=== PATIENT | female | born 1955 | race Caucasian/White ===

== ENCOUNTER 2019-05-14 16:47 | Inpatient (IN) ==
--- NOTE | 2019-05-14 22:03 | Internal Med History&Physical ---
Date of Encounter: 05/15/19 Time of Encounter: 21:53 Internal Medicine - H&P: HPI Chief complaint: dysphagia and swellling Admitted From: Home Plans for Post Hospital Care: Home History of present illness: Ms. Duran is a 63 year old female with past medical history of stage IV colon cancer metastatic to the liver and lungs come to the ED for dysphasia and facial swelling. [id number] encounter at 9 PM Patient reported colon cancer was diagnosed in May with lymphadenopathy in addition to liver metastatic metas tasis and underwent ablation 3 with colon resection 11/2017. Patient started chemotherapy after repeat CT imaging showed a left side abdominal lymphadennode enlargement 10 days ago and underwent further imaging showed long nodules bilaterally lower lobes. Patient was recently hospitalized for new onset seizure secondary to concern for brain metastasis discharged 05/07/2019. Patient was started on Keppra and thereafter has noticed generalized swelling progressive without alleviation or exacerbation. Patient comes to the ED again today for worsening shortness of breath. Patient in the ED had a CT soft tissue neck with contrast showing moderate subcutaneous edema upper chest and lower nec k with concern of moderately sized mass left posterior tongue however was read by multiple radiologist and might be artifact from the patient swelling swallowing. Patient reported the swelling and dysphagia has been started since the Keppra was initiated and has been progressively getting worse intermittently no alleviating or exacerbating factor no association of fever, chills, nausea, vomiting, chest pain, or abdominal pain. CODE STATUS full code reviewed. Patient denied smoking, drinking or drugs. Positive family history of colon cancer x 1 and other types of cancer uncles and aunts. No recent surgical intervention done. The patient past medical, surgical, family and social history. Past Med Surg Social Fam HX - Past Medical History Medical history: asthma, cancer, diabetes, GERD, hyperlipidemia, hypertension, kidney stones Additional medical history: COLON CANCER Psychiatric history: anxiety - Past Surgical History Surgical History: , colectomy Additional surgical history: tubal ligation, open kidney stone removal, lymph node removal, tonsillectomy - Social History Smoking Status: Never smoker Smokeless Tobacco Status: No Alcohol use: occasionally Drug use: none - Family History Mother Adopted: No Family Member Ethnicity: Non- Living Status: Hx Family Cardiac Disorders: Yes Hx Family Respiratory Disorders: Yes (COPD) Hx Family Cancer: Yes (LIVER, COLON) Hx Family GI Disorders: (COLON CANCER) Hx Family Endocrine Disorder: No Hx Family Neuromuscular Disorders: No Hx Family Neurologic Disorders: No Hx Family Autoimmune Disorders: No Father Living Status: Hx Family Cardiac Disorders: Yes ([place] in 40s) Internal Medicine - H&P: Meds Acetaminophen [Tylenol] 325 mg PO Q6HR PRN 02/16/18 [History] Atorvastatin Calcium [Lipitor] 20 mg PO HS 02/16/18 [History] SitaGLIPtin [Januvia] 100 mg PO DAILY 02/16/18 [History] Verapamil HCl [Verelan Pm] 300 mg PO HS 02/16/18 [History] hydrOXYzine HCl [Hydroxyzine HCl] 25 mg PO HS PRN 02/16/18 [History] Prochlorperazine Maleate [Compazine] 10 mg PO Q6HR PRN #90 tablet 03/17/18 [Rx] Aspirin [Adult Aspirin] 81 mg PO DAILY 11/21/18 [History] Docusate Sodium [Dulcolax Stool Softener] 100 mg PO BID 11/21/18 [History] DiphenhydraMINE [Benadryl] 25 mg PO Q8HR PRN 03/12/19 [History] Metformin HCl 1,000 mg PO BID 05/05/19 [History] Ondansetron HCl 8 mg PO Q8H PRN 05/05/19 [History] Potassium Chloride [Klor-Con 10] 10 meq PO BID 05/05/19 [History] levETIRAcetam [Keppra] 250 mg PO Q12HR 05/14/19 [History] Allergy/AdvReac Type Severity Reaction Status Date / Time naproxen [From Aleve] Allergy Severe Swelling Verified 05/11/19 20:45 of Lip/Tongue/Throat quinapril Allergy Swelling Verified 05/11/19 20:45 of Lip/Tongue/Throat doxycycline AdvReac SWELLING Verified 05/11/19 20:45 ibuprofen AdvReac SWELLING Verified 05/11/19 20:45 iodine AdvReac SWELLING Verified 05/11/19 20:45 sulfamethoxazole AdvReac Hives Verified 05/11/19 20:45 [From Bactrim] trimethoprim [From Bactrim] AdvReac Hives Verified 05/11/19 20:45 All Systems PM: A 10-system review of systems was performed and is negative for pertinent findings except as documented above in the HPI. Review of systems: General: No unintentional weightloss, No fever Head: No headahce, No injury. Ears: No discharge, No earache Eyes: No drainage, No eye pain Mouth and Throat: No new ulcers, No pain Nose and Sinus: No new congestion, No pain, Respiratory: No cough, No sputum production, + dyspnea Cardiovascular: No chest pain, No palpitations. Gastrointestinal: No nausea, No vomiting. No abdominal pain. Genital Tract: No discharge, No pain Urinary Tract: No dysuria, No discharge. MSK: No new/worsening joint pain, No new/worsening muscle ache. Endocrine: No cold intolerance, No polyuria Psychological: No suicidal, No homocidal ideation. - Constitutional Vitals: Temp Pulse Resp BP Pulse Ox 98.4 F 102 20 140/86 89 05/14/19 20:25 05/14/19 20:25 05/14/19 20:25 05/14/19 20:25 05/14/19 20:25 Exam: General Appearance: Appearing as age, well-nourished in mild acute distress. Head: Atraumatic normocephalic. right face swelling> left, right arm swelling with bruising> left. Skin: Normal texture, normal turgor, warm, dry. right chest subQ port that is nontender with no lesion purulence. Eyes: Conjunctivae not pale with no erythema, drainage, or ulcers. Anicteric. Neck: difficult to assess Lymphadenopathy in the anterior/posterior cervical chain. No thyromegaly. Trachea midline. soft tissue sweling increase neck circumference, buffalo neck. Heart: RRR, no murmurs. Capillary refill 3 seconds Lungs: No accessory muscle usage, lungs clear to auscultation bilaterally, no wheezes or crackles. Extremities: Non pitting edema noted UE bl, No clubbing, No cyanosis. Abdomen: severe morbid obese. normoactive bowel sounds. non-tender to palpation, no hepatomegally. No guarding. Neuro: AOx3 with no new sensory loss or focal deficits. MSK: Strength 5/5 Upper extremity equal bilaterally. Strength 5/5 Lower extremity equal bilaterally Internal Med - H&P Results - Labs CBC & Chem 7: 05/15/19 03:11 05/15/19 03:11 - Summary of Assessment and Plan Summary of Assessment and Plan: 1.Right facial swelling>left: Etiology unclear. CT showed suspicion of a left posterior tongue mass Patient history of metastatic cancer disease and presents with right face/UE swelling more than left there is a suspicion of SVC syndrome-heme oncology consultation Patient also has noted swelling occurring after Keppra thus we will consult neurology for change of medication to check response. Medical standpoint we will workup for endocrine abnormalities(TSH/T4/Cortisol). Continue to monitor airway-patient understands if airways compromise will need to be intubated. Currently denies any dyspnea and satting 99s in room air, no strider on exam. C4 complement ordered due to asymmetry of the edema. Low suspicion of infection as the patient remains afebrile no leukocytosis and no pain on the right chest port. Blood cultures, procalcitonin orderred. LILA to check for acquired autoimmune diseases. 2.elevated ALP: GGT to check for liver or bone source. 3.Right upper extremity swelling: Ultrasound RUE to rule out DVT. Left upper extremities ultrasound DVT showed no DVT. lymphadenopathy was noted. 4.Dysphagia: Speech consultation Chronic medical conditions: Colon cancer: Heme oncology consultation. Type 2 diabetes: A1c, and sinusitis. History of seizures: On Keppra. Neurology consultation for change of medication due to concern of medication side effect. DVT: heparin Dispo: <2 day stay. - Time Spent With Patient Total time spent is greater than 40 minutes 50% in coordination of care (as documented) at patient's floor/unit and/or counseling patient: Greater than 35 minutes
[2019-05-14] MEDS ORDERED: Naloxone 0.4 MG/ML INJ IVP PRN (22:24)
[2019-05-14] MEDS ORDERED: D5% in Water 1,000 ML IVC PRN (22:24)
[2019-05-14] MEDS ORDERED: Dextrose Gel 15 GM/37.5 ML TUBE PO PRN ×2 (22:24)
[2019-05-14] MEDS ORDERED: *HR* Dextrose 50 % in Water (Syg) 50 ML SYRINGE IVP PRN (22:24)
[2019-05-14 23:10] LABS: Estimated Average Glucose 169 mg/dl
[2019-05-14] MEDS ORDERED: hydrOXYzine pamoate 25 MG CAPSULE PO PRN (23:40)
[2019-05-14] MEDS ORDERED: VERAPAMIL HCL 300 MG PO SCH (23:45)
[2019-05-14] MEDS: Acetaminophen 325 MG TABLET PO PRN (23:56)
[2019-05-15] MEDS: Verapamil ER (24 HR) 180 MG TABLET.ER PO SCH ×2 (00:16→21:31)
[2019-05-15] MEDS: Verapamil ER (24 HR) 120 MG TABLET.ER PO SCH ×2 (00:16→21:31)
[2019-05-15] MEDS: Insulin LISPRO 300 UNITS/3 ML VIAL SQ SCH ×5 (00:17→21:32)
[2019-05-15 04:45] LABS: Basophils % 0.1 %; Hematocrit 36.2 % (35.3-44.9); Hemoglobin 11.6 g/dL (11.5-15.4); Immature Granulocytes % 1.1 % (0-4); Immature Reticulocyte % 24.1 % (11.0-38.0); Lymphocytes # 1.4 K/mcL (0.6-4.6); Lymphocytes % 9.8 %; Mean Corpuscular Hemoglobin 30.3 pg (28.0-33.3); Mean Corpuscular Volume 94.5 fL (83.0-100.0); Mean Platelet Volume 10.2 fL (9.4-12.4); Monocytes # 0.8 K/mcL (0.0-1.3); Monocytes % 5.9 %; Neutrophils # 11.6 K/mcL (1.6-8.9); Platelet Count 206 K/mcL (140-400); Red Blood Count 3.83 M/mcL (3.82-4.97); Red Cell Distribution Width 19.9 % (11.5-14.5); Retculocyte # 0.12 M/mcL (0.05-0.10); Reticulocyte % 3.1 % (1.6-2.8); Segmented Neutrophils % 83.1 %; White Blood Count 13.9 K/mcL (4.3-11.1)
[2019-05-15 04:57] LABS: Prothrombin Time 11.2 Seconds (9.4-12.1)
[2019-05-15 05:04] LABS: % Iron Saturation 8 % (15-50); Alanine Aminotransferase 14 Units/L (7-52); Albumin/Globulin Ratio 1.1 (1.1-2.2); Alkaline Phosphatase 135 Units/L (34-104); Aspartate Amino Transferase 14 Units/L (13-39); BUN/Creatinine Ratio 21 (6-26); Bilirubin,Total 0.9 mg/dL (0.3-1.0); Blood Urea Nitrogen 20 mg/dL (8-23); Calcium 9.8 mg/dL (8.6-10.3); Carbon Dioxide 25 mEq/L (23-29); Chloride 101 mEq/L (98-107); Chol/HDL Ratio 2.2 (0-4.9); Cholesterol 166 mg/dL (< 200); Globulin 3.6 g/dL (2.4-3.5); Glucose 267 mg/dL (70-105); HDL Cholesterol 76 mg/dL (40-59); Iron 35 mcg/dL (50-170); LDL Cholesterol,Calculated 77 mg/dL (0-99); Lactate Dehydrogenase 167 Units/L (140-271); Magnesium 1.7 mg/dL (1.6-2.6); Osmolality,Calculated 292 (280-300); Phosphorous 2.6 mg/dL (2.7-4.5); Potassium 4.3 mEq/L (3.5-5.1); Sodium 135 mEq/L (136-145); Total Protein 7.6 g/dL (6.4-8.9); Transferrin 323 mg/dL (203-362); Triglycerides 66 mg/dL (< 150); eGFR For African Americans > 60 (> 60); eGFR For Non-African Americans 59 (> 60)
[2019-05-15 05:16] LABS: Thyroid Stimulating Hormone 0.916 mcIU/mL (0.340-5.600)
[2019-05-15 05:18] LABS: Triiodothyronine (T3) Free 3.48 pg/mL (2.50-3.90)
[2019-05-15 05:23] LABS: Ferritin 24 ng/mL (10-120)
[2019-05-15 05:40] LABS: Folate > 22.3 ng/mL (3.0-16.0); Procalcitonin 0.03 ng/mL (0.00-0.15); Vitamin B12 208 pg/mL (250-1100)
[2019-05-15] MEDS ORDERED: levETIRAcetam 250 MG TABLET PO SCH (06:00)
[2019-05-15] MEDS ORDERED: *HR* Heparin 5,000 UNIT/ML VIAL SQ SCH (06:00)
[2019-05-15] MEDS: Acetaminophen 325 MG TABLET PO PRN (06:23)
[2019-05-15 07:19] LABS: Gamma Glutamyl Transpeptidase 124 Units/L (1-24)
--- NOTE | 2019-05-15 07:23 | Internal Med Progress Note ---
Hospitalist Progress Note - Encounter Date of Encounter: 05/15/19 Time of Encounter: 07:22 - Subjective Interval History: Patient states she is still swollen, but it seems slightly better. Still swollen arms/hands, but face and throat seems less swollen. No difficulty swallowing, no SOB, no salivation, no facial pain. No abd pain, N/V, leg swelling. - Exam Vitals: Temp Pulse Resp BP Pulse Ox 97.5 F L 88 16 110/74 91 05/15/19 03:54 05/15/19 03:54 05/15/19 03:54 05/15/19 03:54 05/15/19 03:54 Exam: General: NAD, good eye contact, chronically ill appearing, obese, and slightly cushingoid with large round face w some bruising under eyes HEENT: large neck/habitus Thoracic: Normal breath sounds b/l, no wheezing or crackles, no stridor. R sq port Cardio: Normal S1 and S2, regular rate and rhythm Abdomen: Soft, nontender, nondistended, obese Extremities: Warm, well perfused. DP pulses 2+ b/l. No edema. Neuro: Awake, fully oriented. Speech fluent - Summary of Assessment and Plan Summary of Assessment and Plan: Nisreen Duran is a 63 F w hx CoCa metastatic to liver and lung, morbid obesity, DM2, seizures, who p/w swelling of her face, neck, upper chest, and arms/hands, concerning for angioedema v SVC syndrome. Face, neck, and b/l arm swelling: facial swelling initially asymmetric. Etiology unclear. CT showed suspicion of a left posterior tongue mass. Occurred immediately after starting Keppra. Does have metastatic cancer. Thyroid, cortisol, C4 levels unremarkable. No fever and procal negative. - no concern for airway compromise at this time - ENT consult for scope to eval questionable tongue base lesion seen on CT - Neuro consult for change keppra to alternative - Onc consult given recent chemo and metastatic disease, consideration of steroids? - Venous duplex b/l RUE (OSH LUE no DVT) - MANAGER UNDERWRITING eval Chronic medical conditions: Colon cancer: noted, as above, with liver and lung mets Type 2 diabetes: w hyperglycemia, a1c 7.5 mildly uncontrolled, SSI while inpatient History of seizures: as above Morbid obesity (poa): BMI 50 DVT: heparin Tele: no FEN: ADA, no MIVF Lines: PIV, mediport Consults: Onc, Neuro, ENT Code: Full Dispo: anticipate d/c tomorrow pending results of studies/consults above Internal Medicine: Result - Labs CBC & Chem 7: 05/15/19 03:11 05/15/19 03:11 Labs: Short CBC 05/15/19 Range/Units 03:11 WBC 13.9 H (4.3-11.1) K/mcL Hgb 11.6 (11.5-15.4) g/dL Hct 36.2 (35.3-44.9) % Plt Count 206 (140-400) K/mcL Neutrophils # 11.6 H (1.6-8.9) K/mcL BMP 05/15/19 03:11 Sodium 135 L Potassium 4.3 Chloride 101 Carbon Dioxide 25 BUN 20 Creatinine 0.96 Glucose 267 H Calcium 9.8 Cardiac Enzymes 05/14/19 05/15/19 Range/Units 22:49 03:11 Troponin I < 0.03 < 0.03 (< 0.04) ng/mL Liver Function 05/15/19 Range/Units 03:11 Total Bilirubin 0.9 (0.3-1.0) mg/dL GGT 124 H (1-24) Units/L AST 14 (13-39) Units/L ALT 14 (7-52) Units/L Alkaline Phosphatase 135 H (34-104) Units/L Albumin 4.0 (3.5-5.7) g/dL - ABG Interpretation ABG results: PT/INR, D-dimer PT 11.2 Seconds (9.4-12.1) 05/15/19 03:11 Consult Discharge Plan - Plan Referrals: Prashant Pantoja DO [Primary Care Provider] - 05/22/19 1:00 pm
--- NOTE | 2019-05-15 09:11 | Neurology - Consult Note ---
Date of Encounter: 05/15/19 Time of Encounter: 07:10 Assessment and Plan (1) Facial swelling Current Visit: Yes Status: Acute This patient who recently was admitted to the hospital with seizures started on Keppra did not have any further seizures since on medication but having this unusual side effects with this predominantly face and neck swelling as well as swelling in her arms Patient and her are quite convinced that the symptoms started just after starting on the Keppra, she denies any rash associated with it neither any other symptoms She did not have any further seizures since she is on the medication Her workup 2 weeks ago was negative including MRI of the brain which was negative for any metastatic disease the that any other acute abnormality EEG was also negative She is also started on chemotherapy recently and supposed to have an other bouts of chemotherapy today but is on hold considering this new symptoms that she is been experiencing As mentioned this is a very unusual side effects if indeed it is related to the Keppra but as according to the patient's symptoms started just after starting the medication I suggest that we should discontinue it And can start her on a different anticonvulsive medication like Topamax , though there are a lot of other options as well but most of them are metabolized in the liver and with her recent concern of metastatic disease in the liver I would recommend using Topamax which is renally excreted, but should be able to tolerated well We will start her on 25 mg daily and gradually increasing it to 100 mg twice a day In the meantime he can slowly taper off Keppra She will be following up with oncology as well as with other specialties to look into other causes of facial swelling As we do need to exclude any structural abnormalities and headache neck as well (2) History of seizure Current Visit: Yes Status: Acute (3) Colon cancer metastasized to multiple sites Current Visit: No Status: Acute (4) Neck swelling Current Visit: No Status: Acute History of Present Illness HPI: Ms. Duran is a 63 year old female with past medical history of stage IV colon cancer metastatic to the liver and lungs come to the ED for facial swelling. pt has history of colon cancer diagnosed in May with lymphadenopathy in addition to liver metastatic metastasis and underwent ablation 3 with colon resection 11/2017. Patient started chemotherapy after repeat CT imaging showed a left side abdominal lymphadennode enlargement 10 days ago and underwent further imaging showed long nodules bilaterally lower lobes. Patient was recently hospitalized for new onset seizure secondary to concern for brain metastasis discharged 05/07/2019. Patient was started on Keppra and thereafter has noticed generalized swelling progressive without alleviation or exacerbation. Patient comes to the ED again today for worsening shortness of breath. Patient in the ED had a CT soft tissue neck with contrast showing moderate subcutaneous edema upper chest and lower neck with concern of moderately sized mass left posterior tongue however was read by multiple radiologist and might be artifact from the patient swelling swallowing. Patient reported the swelling and dysphagia has been started since the Keppra was initiated and has been progressively getting worse intermittently no alleviating or exacerbating factor no association of fever, chills, nausea, vomiting, chest pain, or abdominal pain. CODE STATUS full code reviewed. Patient denied sm oking, drinking or drugs. Positive family history of colon cancer x 1 and other types of cancer uncles and aunts. Past Med Surg Social Fam HX - Past Medical History Medical history: asthma, cancer, diabetes, GERD, hyperlipidemia, hypertension, kidney stones Additional medical history: COLON CANCER Psychiatric history: anxiety - Past Surgical History Surgical History: , colectomy Additional surgical history: tubal ligation, open kidney stone removal, lymph node removal, tonsillectomy - Social History Smoking Status: Never smoker Smokeless Tobacco Status: No Alcohol use: occasionally Drug use: none - Family History Mother Adopted: No Family Member Ethnicity: Non- Living Status: Hx Family Cardiac Disorders: Yes Hx Family Respiratory Disorders: Yes (COPD) Hx Family Cancer: Yes (LIVER, COLON) Hx Family GI Disorders: (COLON CANCER) Hx Family Endocrine Disorder: No Hx Family Neuromuscular Disorders: No Hx Family Neurologic Disorders: No Hx Family Autoimmune Disorders: No Hx Family Medical Disorders: No (No family history of neurological condition) Father Living Status: Hx Family Cardiac Disorders: Yes ([place] in 40s) Medications and Allergies Acetaminophen [Tylenol] 325 mg PO Q6HR PRN 02/16/18 [History] Atorvastatin Calcium [Lipitor] 20 mg PO HS 02/16/18 [History] SitaGLIPtin [Januvia] 100 mg PO DAILY 02/16/18 [History] Verapamil HCl [Verelan Pm] 300 mg PO HS 02/16/18 [History] hydrOXYzine HCl [Hydroxyzine HCl] 25 mg PO HS PRN 02/16/18 [History] Prochlorperazine Maleate [Compazine] 10 mg PO Q6HR PRN #90 tablet 07/27/18 [Rx] Aspirin [Adult Aspirin] 81 mg PO DAILY 11/21/18 [History] Docusate Sodium [Dulcolax Stool Softener] 100 mg PO BID PRN 11/21/18 [History] DiphenhydraMINE [Benadryl] 25 mg PO Q8HR PRN 03/12/19 [History] Metformin HCl 1,000 mg PO BID 05/05/19 [History] Ondansetron HCl 8 mg PO Q8H PRN 05/05/19 [History] Potassium Chloride [Klor-Con 10] 10 meq PO BID 05/05/19 [History] levETIRAcetam [Keppra] 250 mg PO Q12HR 05/14/19 [History] Allergy/AdvReac Type Severity Reaction Status Date / Time naproxen [From Aleve] Allergy Severe Swelling Verified 05/11/19 20:45 of Lip/Tongue/Throat levetiracetam [From Keppra] Allergy Difficulty Verified 05/16/19 02:02 Swallowing quinapril Allergy Swelling Verified 05/11/19 20:45 of Lip/Tongue/Throat doxycycline AdvReac SWELLING Verified 05/11/19 20:45 ibuprofen AdvReac SWELLING Verified 05/11/19 20:45 iodine AdvReac SWELLING Verified 05/11/19 20:45 sulfamethoxazole AdvReac Hives Verified 05/11/19 20:45 [From Bactrim] trimethoprim [From Bactrim] AdvReac Hives Verified 05/11/19 20:45 All Systems: The remainder of the systems were reviewed and are negative Physical Examination - Vital Signs Vital Signs: Initial Vital Signs Temp Pulse Resp BP Pulse Ox 98.4 F 102 20 140/86 89 05/14/19 20:25 05/14/19 20:25 05/14/19 20:25 05/14/19 20:25 05/14/19 20:25 - Exam Exam: GENERAL: Comfortable in no acute distress, facial swelling noted without any erythema or rash HEENT: Normal LUNGS: CTA HEART: RRR, S1 S2 Audible, no murmur EXTREMITIES: No Pedal edema. DETAILED NEUROLOGICAL EXAMINATION: MENTAL STATUS: Oriented to person, place, date and situation. Memory: knows the President, Aware of recent events Recent Memory Intact, Attention span is normal Cranial Nerve Examination: CN - II: Visual Acuity, Field of Vision Normal, Fundus examination: No disk edema, Pupils- size shape reaction to light and accommodation: All normal. CN III, IV, : External ocular movements were intact, Pupils were reactive, Nodrooping of the eyelids CN V: Sensation over the face to light touch and pinprick all normal. Corneal reflexes not tested, jaw jerk normal. CN VII: No facial asymmetry, no flattening of nasolabial folds, no difficulty in closing the eyes, no loss of forehead wrinkles, no difficulty in eye-closure, frowning raising eyebrows. CNVIII: No significant hearing loss CN IX, X: Uvula centralized not deviated, Gag reflex: Not tested CN X1: Sternocleidomastoid, trapezius, normal or evidence of any weakness. CN X11: No Dysarthria, no wasting or fibrilation f tongue muscles, no deviation, tongue muscle strength normal. Motor examination: No hypertrophy, tone was normal, power grade 0-5 Upper limbs Proximal- No difficulty in lifting the arms above the head. Distal- No weakness in distal muscles On formal testing 5/5 all over Lower limbs On formal testing 5/5 all over Coordination: [id number] normal. Target pursuit normal finger tapping normal, Rapid alternating moment of wrist normal Sensory system: Superficial sensations- Touch normal. Pain- Pinprick, Temperature all normal, Deep sensation normal, Joint position sense normal. Cortical sensation, Tactile discrimination, localization and extinction all normal. Deep tendon reflexes. Symmetrical bilateral, No evidence of Babinski. No sign of meningeal irritation Gait Examination: Deferred - Constitutional General appearance: comfortable Results - Laboratory Findings CBC and BMP: 05/16/19 03:57 05/16/19 03:57 Abnormal lab findings: Abnormal lab results WBC 13.9 K/mcL (4.3-11.1) H 05/15/19 03:11 RDW 19.9 % (11.5-14.5) H 05/15/19 03:11 Reticulocyte # 0.12 M/mcL (0.05-0.10) H 05/15/19 03:11 Neutrophils # 11.6 K/mcL (1.6-8.9) H 05/15/19 03:11 Percent Retic 3.1 % (1.6-2.8) H 05/15/19 03:11 Sodium 135 mEq/L (136-145) L 05/15/19 03:11 Est GFR (Non-Af Amer) 59 (> 60) L 05/15/19 03:11 Glucose 267 mg/dL (70-105) H 05/15/19 03:11 POC Glucose 294 mg/dL (70-99) H 05/15/19 00:04 Hemoglobin A1c 7.5 % (-5.6) H 05/14/19 22:49 Phosphorus 2.6 mg/dL (2.7-4.5) L 05/15/19 03:11 Iron 35 mcg/dL (50-170) L 05/15/19 03:11 % Saturation 8 % (15-50) L 05/15/19 03:11 GGT 124 Units/L (1-24) H 05/15/19 03:11 Alkaline Phosphatase 135 Units/L (34-104) H 05/15/19 03:11 Globulin 3.6 g/dL (2.4-3.5) H 05/15/19 03:11 HDL Cholesterol 76 mg/dL (40-59) H 05/15/19 03:11 Vitamin B12 208 pg/mL (250-1100) L 05/15/19 03:11 Folate > 22.3 ng/mL (3.0-16.0) H 05/15/19 03:11 Consult Discharge Plan - Plan Referrals: Prashant Pantoja DO [Primary Care Provider] - 05/22/19 1:00 pm
--- NOTE | 2019-05-15 09:56 | Oncology Inp Consult Note ---
<Michelle Mejia - Last Filed: 05/15/19 15:16> Date of Encounter: 05/15/19 Time of Encounter: 09:54 Assessment and Plan (1) Colon cancer metastasized to multiple sites Status: Acute Assessment and plan: Chemotherapy on-hold while hospitalized. Plan to resume treatment, as an outpatient, on 05/22/19 Outpatient imaging from [facility] noted CT showing progression in the lungs. Patient aware of results. New treatment plan included irinotecan and 5FU home infusion (2) Facial swelling Status: Acute Assessment and plan: DVT noted to right subclavian (3) History of seizure Status: Acute Assessment and plan: Neurology consulted and appreciate recommendations. Keppra stopped and patient being transitioned to Topamax - Data of Consult Patient: known to practice within the last 3 years Consult date: 05/15/19 Requesting Physician: Houston Bermeo Primary Care Provider: Prashant Pantoja, DO - Consult Narrative Reason for consult: metastatic colon cancer, concerns for SVC syndrome History of present illness: Ms. Nisreen Duran, a 63yo female with known colon cancer, presented to the emergency department on 05/14/19 for facial edema, BUE edema, and worsening shortness of breath. She notes that she recently starting taking Keppra for a seizure ten days ago. She has not had any additional seizures since beginning Keppra. She notes that her right-side of her face and chest appear more swollen than the left side. She had BUE edema and facial edema. She is currently on 2L O2 per NC and denies dyspnea at this time. She denies chest pain or palpitations. Oncology was consulted on 05/15/19 due to metastatic colon cancer and concerns for SVC syndrome. Oncology history: Medical oncologist: Dr. Walls Diagnosis: moderately differentiated adenocarcinoma of the ascending colon mass, s/p neoadjuvant FOLFOX and right hemicolectomy on 11/14/2018, ablation of liver metastatic lesions planned at [facility] [id number] (clinial M1) Abnormal colonoscopy in May 2017 underwent a follow-up scope January 2018. A colonoscopy showed infiltrative nonobstructive large mass in distal ascending colon biopsies were obtained is consistent with moderately differentiated adenocarcinoma with at least intramucosal invasion. Patient had undergone CT scan that showed liver lesions She had a CT-guided biopsy of the liver lesion which is consistent with metastatic colon carcinoma Patient started C1 FOLFOX, 03/2018. 06/08-patient was seen by surgery at [facility] after 3 cycles, they recommended complete 6 cycles of treatment prior to surgery due to her recent thrombosis associated with MediPort and the need for continued anticoagulation. Patient underwent last dose of FOLFOX 10/04/18. Minimal neuropathy. She underwent repeat CT imaging at [facility] liver lesions were not clearly visualized. 11/21/18--Extended right hemicolectomy and anastamosis performed, 11/14/18. No peritoneal metastases. lymph nodes were positive. Tumor was moderately to poorly differentiated with treatment effect. Positive lymph node that is less than 0.1 cm from radial margin; the main tumor is 2.7 cm away from the radial margin (positive if tumor < 0.1 cm from margin) Nearest distance of tumor to radial margin: < 0.1 cm lymphovascular invasion. Eccentric tumor deposits, discontinuous extramural involvement. She is scheduled for liver ablation procedure. She has a follow-up appointment with surgery on . 01/29/19 s/p ablation of metastatic liver lesions at [facility] Started capecitabine oxaliplatin, CEA progressively increased --04/09. CT chest 05/03/19 showed incr no of small pulm nodules measuring 6mm concerning for mets at [facility], CT abd pending Plan to change treatment to irinotecan/5FU. Patient was planned to begin treatment 05/16/19, but currently hospitalized. Will plan for visit and treatment on 06/22/19. Past Med Surg Social Fam HX - Past Medical History Medical history: asthma, cancer, diabetes, GERD, hyperlipidemia, hypertension, kidney stones Additional medical history: COLON CANCER Psychiatric history: anxiety - Past Surgical History Surgical History: , colectomy Additional surgical history: tubal ligation, open kidney stone removal, lymph node removal, tonsillectomy - Social History Smoking Status: Never smoker Smokeless Tobacco Status: No Alcohol use: occasionally Drug use: none - Family History Mother Adopted: No Family Member Ethnicity: Non- Living Status: Hx Family Cardiac Disorders: Yes Hx Family Respiratory Disorders: Yes (COPD) Hx Family Cancer: Yes (LIVER, COLON) Hx Family GI Disorders: (COLON CANCER) Hx Family Endocrine Disorder: No Hx Family Neuromuscular Disorders: No Hx Family Neurologic Disorders: No Hx Family Autoimmune Disorders: No Father Living Status: Hx Family Cardiac Disorders: Yes ([place] in 40s) Medications and Allergies Acetaminophen [Tylenol] 325 mg PO Q6HR PRN 02/16/18 [History] Atorvastatin Calcium [Lipitor] 20 mg PO HS 02/16/18 [History] SitaGLIPtin [Januvia] 100 mg PO DAILY 02/16/18 [History] Verapamil HCl [Verelan Pm] 300 mg PO HS 02/16/18 [History] hydrOXYzine HCl [Hydroxyzine HCl] 25 mg PO HS PRN 02/16/18 [History] Prochlorperazine Maleate [Compazine] 10 mg PO Q6HR PRN #90 tablet 03/17/18 [Rx] Aspirin [Adult Aspirin] 81 mg PO DAILY 11/21/18 [History] Docusate Sodium [Dulcolax Stool Softener] 100 mg PO BID PRN 11/21/18 [History] DiphenhydraMINE [Benadryl] 25 mg PO Q8HR PRN 03/12/19 [History] Metformin HCl 1,000 mg PO BID 05/05/19 [History] Ondansetron HCl 8 mg PO Q8H PRN 05/05/19 [History] Potassium Chloride [Klor-Con 10] 10 meq PO BID 05/05/19 [History] levETIRAcetam [Keppra] 250 mg PO Q12HR 05/14/19 [History] Allergy/AdvReac Type Severity Reaction Status Date / Time naproxen [From Aleve] Allergy Severe Swelling Verified 05/11/19 20:45 of Lip/Tongue/Throat quinapril Allergy Swelling Verified 05/11/19 20:45 of Lip/Tongue/Throat doxycycline AdvReac SWELLING Verified 05/11/19 20:45 ibuprofen AdvReac SWELLING Verified 05/11/19 20:45 iodine AdvReac SWELLING Verified 05/11/19 20:45 sulfamethoxazole AdvReac Hives Verified 05/11/19 20:45 [From Bactrim] trimethoprim [From Bactrim] AdvReac Hives Verified 05/11/19 20:45 Cardiovascular: Present: edema. Absent: chest pain, palpitations, rapid heart rate Respiratory: Absent: dyspnea, chest congestion Gastrointestinal: Absent: abdominal pain, constipation, diarrhea, nausea, vomiting Musculoskeletal: Present: numbness, tingling. Absent: muscle weakness Integumentary: Present: swelling Neurological: Absent: confusion, loss of vision Oncology - Exam - Head Additional comments: facial edema - Respiratory Respiratory exam: Present: decreased breath sounds. Absent: accessory muscle use, respiratory distress - Cardiovascular Cardiovascular exam: Present: RRR - GI/Abdominal GI/Abdominal exam: Present: normal bowel sounds, soft. Absent: tenderness - Extremities Exam Additional comments: BUE edema - Neurological Exam Neurological exam: Present: alert, oriented X3. Absent: facial droop, speech deficit - Psychiatric Psychiatric exam: Present: anxious - Skin Skin exam: Present: dry, pallor Oncology Inpatient Results Labs: Laboratory Results - last 24 hr 05/14/19 05/14/19 05/15/19 22:49 22:49 00:04 WBC RBC Hgb Hct MCV MCH MCHC RDW Plt Count MPV Reticulocyte # Immature Gran % Seg Neutrophils % Lymphocytes % Monocytes % Eosinophils % Basophils % Neutrophils # Lymphocytes # Monocytes # Eosinophils # Basophils # Percent Retic Immature Retic Fraction Retic Hgb Equivalent PT INR Sodium Potassium Chloride Carbon Dioxide BUN Creatinine Est GFR ( Amer) Est GFR (Non-Af Amer) BUN/Creatinine Ratio Glucose POC Glucose 294 H Est Mean Plasma Glucose 169 Hemoglobin A1c 7.5 H Calculated Osmolality Calcium Phosphorus Magnesium Iron % Saturation Transferrin Ferritin Total Bilirubin GGT AST ALT Alkaline Phosphatase Lactate Dehydrogenase Troponin I < 0.03 Serum Total Protein Albumin Globulin Albumin/Globulin Ratio Triglycerides Cholesterol LDL Cholesterol, Calc VLDL Cholesterol, Calc HDL Cholesterol Cholesterol/HDL Ratio Vitamin B12 Folate Procalcitonin TSH Free T4 Free T3 Random Cortisol Complement C4 05/15/19 05/15/19 05/15/19 03:11 03:11 03:11 WBC 13.9 H RBC 3.83 Hgb 11.6 Hct 36.2 MCV 94.5 MCH 30.3 MCHC 32.0 RDW 19.9 H Plt Count 206 MPV 10.2 Reticulocyte # 0.12 H Immature Gran % 1.1 Seg Neutrophils % 83.1 Lymphocytes % 9.8 Monocytes % 5.9 Eosinophils % 0.0 Basophils % 0.1 Neutrophils # 11.6 H Lymphocytes # 1.4 Monocytes # 0.8 Eosinophils # 0.0 Basophils # 0.0 Percent Retic 3.1 H Immature Retic Fraction 24.1 Retic Hgb Equivalent 35.0 PT 11.2 INR 1.0 Sodium 135 L Potassium 4.3 Chloride 101 Carbon Dioxide 25 BUN 20 Creatinine 0.96 Est GFR ( Amer) > 60 Est GFR (Non-Af Amer) 59 L BUN/Creatinine Ratio 21 Glucose 267 H POC Glucose Est Mean Plasma Glucose Hemoglobin A1c Calculated Osmolality 292 Calcium 9.8 Phosphorus 2.6 L Magnesium 1.7 Iron 35 L % Saturation 8 L Transferrin 323 Ferritin 24 Total Bilirubin 0.9 GGT 124 H AST 14 ALT 14 Alkaline Phosphatase 135 H Lactate Dehydrogenase 167 Troponin I Serum Total Protein 7.6 Albumin 4.0 Globulin 3.6 H Albumin/Globulin Ratio 1.1 Triglycerides 66 Cholesterol 166 LDL Cholesterol, Calc 77 VLDL Cholesterol, Calc 13 HDL Cholesterol 76 H Cholesterol/HDL Ratio 2.2 Vitamin B12 Folate Procalcitonin TSH 0.916 Free T4 1.05 Free T3 3.48 Random Cortisol 4.4 Complement C4 05/15/19 05/15/19 05/15/19 03:11 03:11 03:11 WBC RBC Hgb Hct MCV MCH MCHC RDW Plt Count MPV Reticulocyte # Immature Gran % Seg Neutrophils % Lymphocytes % Monocytes % Eosinophils % Basophils % Neutrophils # Lymphocytes # Monocytes # Eosinophils # Basophils # Percent Retic Immature Retic Fraction Retic Hgb Equivalent PT INR Sodium Potassium Chloride Carbon Dioxide BUN Creatinine Est GFR ( Amer) Est GFR (Non-Af Amer) BUN/Creatinine Ratio Glucose POC Glucose Est Mean Plasma Glucose Hemoglobin A1c Calculated Osmolality Calcium Phosphorus Magnesium Iron % Saturation Transferrin Ferritin Total Bilirubin GGT AST ALT Alkaline Phosphatase Lactate Dehydrogenase Troponin I < 0.03 Serum Total Protein Albumin Globulin Albumin/Globulin Ratio Triglycerides Cholesterol LDL Cholesterol, Calc VLDL Cholesterol, Calc HDL Cholesterol Cholesterol/HDL Ratio Vitamin B12 208 L Folate > 22.3 H Procalcitonin 0.03 TSH Free T4 Free T3 Random Cortisol Complement C4 33 Consult Discharge Plan - Plan Referrals: Prashant Pantoja DO [Primary Care Provider] - 05/22/19 1:00 pm Inpatient Charges Provider: Dr. Maria Eugenia Walls <Jannet Walls - Last Filed: 05/15/19 17:00> Date of Encounter: 05/15/19 - Data of Consult Requesting Physician: [place] Bermeo Primary Care Provider: Prashant Pantoja DO - Consult Narrative History of present illness: Patient with recent ED visit for neck swelling underwent imaging hospitalized for swelling in the neck/throat. ?doppler SC vein thrombosis. SHe had hx port associated thrombus was anticoagulated (currently off xarelto). Restart anticoagulation. Port may stay. Neurology-for Keppra associated possible reaction and ENT evaluation. I examined this patient and my medical decision- making was reviewed with the Advanced Practice Nurse, Michelle Mejia. I agree with the documented findings, disposition and treatment plan as described except to the extent set forth below. Hold chemotherapy due tomorrow due to hospitalization, resume in a wk. Inpatient Charges Provider: Dr. Maria Eugenia Walls Consult - Inpatient: [id number]
[2019-05-15] MEDS: Aspirin Enteric Coated 81 MG Tablet PO SCH (09:58)
[2019-05-15] MEDS: Topiramate 25 MG TABLET PO SCH ×2 (10:26→21:31)
[2019-05-15] MEDS: Ondansetron ODT 4 MG TAB.RAPDIS SL PRN (11:00)
[2019-05-15 12:22] LABS: Bilirubin,Urine Small (Negative); Blood,Urine Negative (Negative); Clarity,Urine Clear (Clear); Color,Urine Dark Yellow (Yellow); Glucose,Urine (UA) Normal (Normal); Ketones,Urine Negative (Negative); Leukocyte Esterase,Urine Negative (Negative); Nitrite,Urine Negative (Negative); PH,Urine 5.5 pH Units (5.0-8.0); Protein,Urine 30 mg/dL (Neg-Trace); Specific Gravity,Urine > 1.030 (1.010-1.025); Urobilinogen,Urine Normal (Normal)
[2019-05-15 12:26] LABS: Bacteria,Urine None Seen per hpf (None-Few); Hyaline Casts,Urine Moderate per lpf (None-Few); Squamous Epithelial Cell,Urine Many per lpf (None-Few); WBC,Urine 0-3 per hpf (0-3)
[2019-05-15] MEDS ORDERED: *HR* Enoxaparin 30 MG/0.3 ML SYRINGE SQ ONE (13:25)
[2019-05-15] MEDS ORDERED: *HR* Enoxaparin 120 MG/0.8 ML SYRINGE SQ ONE (14:15)
--- NOTE | 2019-05-15 17:21 | ENT - Consult Note ---
Date of Encounter: 05/15/19 Time of Encounter: 17:19 Assessment and Plan (1) Benign neoplasm of base of tongue Current Visit: Yes Status: Resolved There is no evidence of any tongue base mass. Her tongue base is soft. There is no lesion on laryngoscopy. CT findings are likely artifact. Her CT scan a week ago did not show any tongue base mass which also favors there being no current pathology. This has been communicated to Dr. Degroot. ENT will sign off please for free to call us with any future concerns or questions (2) Facial swelling Current Visit: Yes Status: Acute Appears to be resolved/resolving. No evidence of airway compromise. Continue treatment per primary team History of Present Illness Consult date: 05/15/19 (possible tongue base mass) History of present illness: This is a 63-year-old female with metastatic colon cancer to lungs and liver. She has an extensive history history of treatment, including surgeries along with chemotherapy. She presented to an outside emergency room with concerns of progressive upper chest and neck swelling on the right side. She complained of dysphagia and increased shortness of breath. There was concern for SVC syndrome. She believes her edema and symptoms started soon after initiating Keppra. CT scan of the neck was done and was read as a potential left tongue base mass (per verbal report from hospitalist). There was suspicion this may have been artifact, however. ENT was consulted for direct inspection of the tongue base. She had a ultrasound of her upper extremity and early reports suggest right subclavian and cephalic thrombosis (there is no official read yet). She was given a dose fo Lovenox. She was transferred from the ICU to the floor today. She is doing well on RA without any increased work of breathing. She states her breathing and swelling have improved since discontinuing the Keppra. She is currently NPO pending my evaluation. She is handling her secretions and feels that she could swallow easily. A previous CT scan was done 3 days without any acute findings. She is being managed by the internal medicine service with neurology and oncology consult. Neurology is working to wean her off Keppra. She had a recent hospital admission due to seizures. She has been afebrile. Her oncologic treatment is based out of the [facility] in [place]. Past Med Surg Social Fam HX - Past Medical History Medical history: asthma, cancer, diabetes, GERD, hyperlipidemia, hypertension, kidney stones Additional medical history: COLON CANCER Psychiatric history: anxiety - Past Surgical History Surgical History: , colectomy Additional surgical history: tubal ligation, open kidney stone removal, lymph node removal, tonsillectomy - Social History Smoking Status: Never smoker Smokeless Tobacco Status: No Alcohol use: occasionally Drug use: none - Family History Mother Adopted: No Family Member Ethnicity: Non- Living Status: Hx Family Cardiac Disorders: Yes Hx Family Respiratory Disorders: Yes (COPD) Hx Family Cancer: Yes (LIVER, COLON) Hx Family GI Disorders: (COLON CANCER) Hx Family Endocrine Disorder: No Hx Family Neuromuscular Disorders: No Hx Family Neurologic Disorders: No Hx Family Autoimmune Disorders: No Father Living Status: Hx Family Cardiac Disorders: Yes ([place] in 40s) Medications and Allergies Acetaminophen [Tylenol] 325 mg PO Q6HR PRN 02/16/18 [History] Atorvastatin Calcium [Lipitor] 20 mg PO HS 02/16/18 [History] SitaGLIPtin [Januvia] 100 mg PO DAILY 02/16/18 [History] Verapamil HCl [Verelan Pm] 300 mg PO HS 02/16/18 [History] hydrOXYzine HCl [Hydroxyzine HCl] 25 mg PO HS PRN 02/16/18 [History] Prochlorperazine Maleate [Compazine] 10 mg PO Q6HR PRN #90 tablet 03/17/18 [Rx] Aspirin [Adult Aspirin] 81 mg PO DAILY 11/21/18 [History] Docusate Sodium [Dulcolax Stool Softener] 100 mg PO BID PRN 11/21/18 [History] DiphenhydraMINE [Benadryl] 25 mg PO Q8HR PRN 03/12/19 [History] Metformin HCl 1,000 mg PO BID 05/05/19 [History] Ondansetron HCl 8 mg PO Q8H PRN 05/05/19 [History] Potassium Chloride [Klor-Con 10] 10 meq PO BID 05/05/19 [History] levETIRAcetam [Keppra] 250 mg PO Q12HR 05/14/19 [History] Allergy/AdvReac Type Severity Reaction Status Date / Time naproxen [From Aleve] Allergy Severe Swelling Verified 05/11/19 20:45 of Lip/Tongue/Throat quinapril Allergy Swelling Verified 05/11/19 20:45 of Lip/Tongue/Throat doxycycline AdvReac SWELLING Verified 05/11/19 20:45 ibuprofen AdvReac SWELLING Verified 05/11/19 20:45 iodine AdvReac SWELLING Verified 05/11/19 20:45 sulfamethoxazole AdvReac Hives Verified 05/11/19 20:45 [From Bactrim] trimethoprim [From Bactrim] AdvReac Hives Verified 05/11/19 20:45 ENT - ROS All systems PM: reviewed and no additional remarkable complaints except as stated (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 No distress. Communication and Voice: Clear pitch and clarity Respiratory Respiratory effort: Equal inspiration and expiration without stridor Auscultation: Equal breath sounds bilaterally Cardiovascular Heart: regular rate and rhythm Peripheral Vascular: Warm extremities with equal pulses Neuro: Patient oriented to person, place, and time; Appropriate mood and affect; Gait is intact with no imbalance; Cranial nerves II-XII are intact except for left eye blindness Head and Face Inspection: Normocephalic and atraumatic without mass or lesion. No definite edema of hte neck or face. Symmetric fullness. Negative dre sign. Palpation: Facial skeleton intact without bony stepoffs Facial Strength: Facial motility symmetric and full bilaterally Eyes: PERRLA. No nystagmus with normal extraocular motion bilaterally ENT Pinna: External ear intact and fully developed External canal: Canal is patent with intact skin Tympanic Membrane: Clear and mobile External nose: No scar or anatomic deformity Internal Nose: Septum intact and midline. No edema, polyp, or rhinorrhea. TMJ: No pain to palpation with full mobility Salivary Glands: No mass or tenderness Lips: No lesion. Oral cavity: No mass or lesion. Oropharynx: No mass or lesion. Tonsillar fossa symmetric. Base of tongue soft without mass or induration. Nasopharynx: unable to visualize Hypopharynx: unable to visualize Larynx: unable to visualize Neck Trachea: Midline trachea. Thyroid: No mass or nodularity. Lymphatics: No discrete lymphadenopathy. Preoperative diagnosis: possible tongue base mass, airway evaluation Postoperative diagnosis: Same Procedure: Flexible fiberoptic laryngoscopy Surgeon: Brooks Neal M.D. Anesthesia: None Complications: None Condition is stable throughout exam Indications and consent: The patient presents with concnern of airway compromise and possible tongue base mass. Indirect laryngoscopy was incomplete due to a strong gag reflex. Thus it was recommended that they undergo a flexible fiberoptic laryngoscopy. All of the risks, benefits, and potential complications were reviewed with the patient preoperatively and verbal informed consent was obtained. Procedure: The patient was seated upright in the clinic. Topical lidocaine and Afrin were applied to the nasal cavity. After adequate anesthesia had occurred, I then proceeded to pass the flexible telescope into the nasal cavity. The nasal cavity was patent without rhinorrhea or polyp. The nasopharynx was also patent without mass or lesion. The base of tongue was visualized and was normal. There were no signs of pooling of secretions in the piriform sinuses. The true vocal folds were mobile bilaterally. There were no signs of glottic or supraglottic mucosal lesion or mass. There was moderate interarytenoid pachydermia and post cricoid edema. The telescope was then slowly withdrawn and the patient tolerated the procedure throughout. Exam Initial Vital Signs Temp Pulse Resp BP Pulse Ox 98.4 F 102 20 140/86 89 05/14/19 20:25 05/14/19 20:25 05/14/19 20:25 05/14/19 20:25 05/14/19 20:25 Results - Labs 05/15/19 03:11 05/15/19 03:11 Abnormal lab results WBC 13.9 K/mcL (4.3-11.1) H 05/15/19 03:11 RDW 19.9 % (11.5-14.5) H 05/15/19 03:11 Reticulocyte # 0.12 M/mcL (0.05-0.10) H 05/15/19 03:11 Neutrophils # 11.6 K/mcL (1.6-8.9) H 05/15/19 03:11 Percent Retic 3.1 % (1.6-2.8) H 05/15/19 03:11 Sodium 135 mEq/L (136-145) L 05/15/19 03:11 Est GFR (Non-Af Amer) 59 (> 60) L 05/15/19 03:11 Glucose 267 mg/dL (70-105) H 05/15/19 03:11 POC Glucose 294 mg/dL (70-99) H 05/15/19 00:04 Hemoglobin A1c 7.5 % (-5.6) H 05/14/19 22:49 Phosphorus 2.6 mg/dL (2.7-4.5) L 05/15/19 03:11 Iron 35 mcg/dL (50-170) L 05/15/19 03:11 % Saturation 8 % (15-50) L 05/15/19 03:11 GGT 124 Units/L (1-24) H 05/15/19 03:11 Alkaline Phosphatase 135 Units/L (34-104) H 05/15/19 03:11 Globulin 3.6 g/dL (2.4-3.5) H 05/15/19 03:11 HDL Cholesterol 76 mg/dL (40-59) H 05/15/19 03:11 Vitamin B12 208 pg/mL (250-1100) L 05/15/19 03:11 Folate > 22.3 ng/mL (3.0-16.0) H 05/15/19 03:11 Ur Specific [place] > 1.030 (1.010-1.025) H 05/15/19 11:10 Urine Protein 30 mg/dL (Neg-Trace) H 05/15/19 11:10 Urine Bilirubin Small (Negative) H 05/15/19 11:10 Urine Microscopic RBC 3-5 per hpf (0-3) H 05/15/19 11:10 Ur Squamous Epith Cells Many per lpf (None-Few) H 05/15/19 11:10 Hyaline Casts Moderate per lpf (None-Few) H 05/15/19 11:10 Diabetes panel 05/14/19 05/15/19 Range/Units 22:49 03:11 Sodium 135 L (136-145) mEq/L Potassium 4.3 (3.5-5.1) mEq/L Chloride 101 (98-107) mEq/L Carbon Dioxide 25 (23-29) mEq/L BUN 20 (8-23) mg/dL Creatinine 0.96 (0.60-1.20) mg/dL Glucose 267 H (70-105) mg/dL Hemoglobin A1c 7.5 H ( - 5.6) % Calcium 9.8 (8.6-10.3) mg/dL AST 14 (13-39) Units/L ALT 14 (7-52) Units/L Alkaline Phosphatase 135 H (34-104) Units/L Albumin 4.0 (3.5-5.7) g/dL Triglycerides 66 (< 150) mg/dL HDL Cholesterol 76 H (40-59) mg/dL Thyroid panel 05/15/19 Range/Units 03:11 TSH 0.916 (0.340-5.600) mcIU/mL Calcium panel 05/15/19 Range/Units 03:11 Calcium 9.8 (8.6-10.3) mg/dL Phosphorus 2.6 L (2.7-4.5) mg/dL Albumin 4.0 (3.5-5.7) g/dL Pituitary panel 05/15/19 Range/Units 03:11 Sodium 135 L (136-145) mEq/L Potassium 4.3 (3.5-5.1) mEq/L Chloride 101 (98-107) mEq/L Carbon Dioxide 25 (23-29) mEq/L BUN 20 (8-23) mg/dL Creatinine 0.96 (0.60-1.20) mg/dL Glucose 267 H (70-105) mg/dL Calcium 9.8 (8.6-10.3) mg/dL TSH 0.916 (0.340-5.600) mcIU/mL Adrenal panel 05/15/19 Range/Units 03:11 Sodium 135 L (136-145) mEq/L Potassium 4.3 (3.5-5.1) mEq/L Chloride 101 (98-107) mEq/L Carbon Dioxide 25 (23-29) mEq/L BUN 20 (8-23) mg/dL Creatinine 0.96 (0.60-1.20) mg/dL Glucose 267 H (70-105) mg/dL Calcium 9.8 (8.6-10.3) mg/dL Total Bilirubin 0.9 (0.3-1.0) mg/dL AST 14 (13-39) Units/L ALT 14 (7-52) Units/L Alkaline Phosphatase 135 H (34-104) Units/L Albumin 4.0 (3.5-5.7) g/dL All other labs normal. - Imaging Additional studies: CT neck 05/14 review: Outside report states: "moderate sized left posterior tongue base mass. This could be more apparent than real". CT neck 05/12 reviewed: IMPRESSION: Mild subcutaneous fat stranding and probably skin scarring overlying the right chest port. Otherwise, unremarkable neck soft tissues. No drainable fluid collection, mass or subcutaneous emphysema. Consult Discharge Plan - Plan Referrals: Prashant Pantoja DO [Primary Care Provider] - 05/22/19 1:00 pm
[2019-05-15] MEDS: *HR* Rivaroxaban 15 MG TABLET PO SCH (22:26)
[2019-05-16] MEDS: Acetaminophen 325 MG TABLET PO PRN (01:33)
[2019-05-16 04:19] LABS: Basophils # 0.1 K/mcL (0.0-0.2); Basophils % 0.3 %; Eosinophils # 0.1 K/mcL (0.0-0.6); Eosinophils % 0.3 %; Hematocrit 33.9 % (35.3-44.9); Lymphocytes % 24.2 %; Mean Corpuscular HGB Conc 32.4 g/dL (31.6-35.5); Mean Corpuscular Hemoglobin 29.7 pg (28.0-33.3); Mean Corpuscular Volume 91.6 fL (83.0-100.0); Monocytes # 1.5 K/mcL (0.0-1.3); Monocytes % 8.8 %; Neutrophils # 10.9 K/mcL (1.6-8.9); Platelet Count 200 K/mcL (140-400); Red Cell Distribution Width 20.1 % (11.5-14.5); Segmented Neutrophils % 65.4 %; White Blood Count 16.6 K/mcL (4.3-11.1)
[2019-05-16 05:09] LABS: Alanine Aminotransferase 12 Units/L (7-52); Albumin 3.6 g/dL (3.5-5.7); Albumin/Globulin Ratio 1.1 (1.1-2.2); Alkaline Phosphatase 133 Units/L (34-104); Aspartate Amino Transferase 19 Units/L (13-39); BUN/Creatinine Ratio 26 (6-26); Bilirubin,Total 0.7 mg/dL (0.3-1.0); Blood Urea Nitrogen 25 mg/dL (8-23); Calcium 9.2 mg/dL (8.6-10.3); Carbon Dioxide 20 mEq/L (23-29); Chloride 104 mEq/L (98-107); Globulin 3.3 g/dL (2.4-3.5); Glucose 171 mg/dL (70-105); Osmolality,Calculated 290 (280-300); Potassium 3.6 mEq/L (3.5-5.1); Sodium 136 mEq/L (136-145); Total Protein 6.9 g/dL (6.4-8.9); eGFR For African Americans > 60 (> 60); eGFR For Non-African Americans 57 (> 60)
[2019-05-16] MEDS: Aspirin Enteric Coated 81 MG Tablet PO SCH (08:12)
[2019-05-16] MEDS: *HR* Rivaroxaban 15 MG TABLET PO SCH ×2 (08:13→21:03)
[2019-05-16] MEDS: Topiramate 25 MG TABLET PO SCH ×2 (08:13→21:03)
[2019-05-16] MEDS: Insulin LISPRO 300 UNITS/3 ML VIAL SQ SCH ×4 (08:13→21:05)
--- NOTE | 2019-05-16 10:35 | Internal Med Progress Note ---
Hospitalist Progress Note - Encounter Date of Encounter: 05/16/19 Time of Encounter: 10:34 - Subjective Interval History: Patient today feels relatively the same as yesterday, no improvement but no worsening of facial and UE swelling other than did get to point of taking some of her rings off. Does state that her left ear has some fullness/fluid sensation in it; no discharge or pain. No fevers, no SOB, no stridor. Was scoped uneventfully by ENT yesterday. - Exam Vitals: Temp Pulse Resp BP Pulse Ox 97.8 F 86 18 95/62 90 05/16/19 08:03 05/16/19 08:03 05/16/19 08:03 05/16/19 08:03 05/16/19 08:03 Exam: General: NAD, good eye contact, chronically ill appearing, obese, and slightly cushingoid with large round face w some bruising under eyes, stable from HEENT: large neck/habitus Thoracic: Normal breath sounds b/l, no wheezing or crackles, no stridor. R sq port Cardio: Normal S1 and S2, regular rate and rhythm Abdomen: Soft, nontender, nondistended, obese Extremities: Warm, well perfused. DP pulses 2+ b/l. No edema in legs. Hands and forearms puffy Neuro: Awake, fully oriented. Speech fluent - Summary of Assessment and Plan Summary of Assessment and Plan: Nisreen Duran is a 63 F w hx CoCa metastatic to liver and lung, morbid obesity, DM2, seizures, who p/w swelling of her face, neck, upper chest, and arms/hands, concerning for angioedema v SVC syndrome. R SCV DVT: causing symptoms suggestive of SCV syndrome. She seems to be stable in appearance although is reporting enough to make me want to obs her another 24h including face feeling more full, ear feeling full, and needing to take rings off fingers - no concern for airway compromise at this time and no tongue base lesion, appreciate ENT scope 05/15 - Xarelto 15 bid x21d then 20 daily thereafter - Onc consulted, plan for catheter salvage rather than removal at this time Chronic medical conditions: Colon cancer: noted, as above, with liver and lung mets Type 2 diabetes: w hyperglycemia, a1c 7.5 mildly uncontrolled, SSI while inpati ent History of seizures: per neuro, switched keppra to topamax although at this point likely DVT and not keppra which caused swelling Morbid obesity: BMI 50 DVT: xarelto Tele: no FEN: ADA, no MIVF Lines: PIV, mediport Consults: Onc, Neuro, ENT Code: Full Dispo: anticipate d/c tomorrow if swelling remains stable Internal Medicine: Result - Labs CBC & Chem 7: 05/16/19 03:57 05/16/19 03:57 Labs: Short CBC 05/16/19 Range/Units 03:57 WBC 16.6 H (4.3-11.1) K/mcL Hgb 11.0 L (11.5-15.4) g/dL Hct 33.9 L (35.3-44.9) % Plt Count 200 (140-400) K/mcL Neutrophils # 10.9 H (1.6-8.9) K/mcL BMP 05/16/19 03:57 Sodium 136 Potassium 3.6 Chloride 104 Carbon Dioxide 20 L BUN 25 H Creatinine 0.98 Glucose 171 H Calcium 9.2 Liver Function 05/16/19 Range/Units 03:57 Total Bilirubin 0.7 (0.3-1.0) mg/dL AST 19 (13-39) Units/L ALT 12 (7-52) Units/L Alkaline Phosphatase 133 H (34-104) Units/L Albumin 3.6 (3.5-5.7) g/dL Urine 05/15/19 Range/Units 11:10 Urine Color Dark Yellow (Yellow) Urine Clarity Clear (Clear) Urine pH 5.5 (5.0-8.0) pH Units Ur Specific [place] > 1.030 H (1.010-1.025) Urine Protein 30 H (Neg-Trace) mg/dL Urine Glucose (UA) Normal (Normal) mg/dL - ABG Interpretation ABG results: PT/INR, D-dimer PT 11.2 Seconds (9.4-12.1) 05/15/19 03:11 Consult Discharge Plan - Plan Referrals: Prashant Pantoja DO [Primary Care Provider] - 05/22/19 1:00 pm
--- NOTE | 2019-05-16 11:56 | Neurology Progress Note ---
Date of Encounter: 05/16/19 Time of Encounter: 07:35 Assessment and Plan (1) Facial swelling Current Visit: Yes Status: Acute (2) History of seizure Current Visit: Yes Status: Acute Stable clinically no further seizures reported off Keppra Started on Topamax suggested to continue gradually increase the dose to 50 mg twice a day (3) Colon cancer metastasized to multiple sites Current Visit: No Status: Acute (4) Neck swelling Current Visit: No Status: Acute sshe was found to have Right acute superficial thrombosis of the cephalic vein extending into the deep system at the subclavian. Right subclavian deep vein acute thrombosis. Flow is absent. mary carmen the reason for her swelling l Subjective Interval history: Patient is seen as an follow-up, she is still having swelling of the face though not as bad as she was having it earlier Venous duplex showed Right acute superficial thrombosis of the cephalic vein extending into the deep system at the subclavian. Right subclavian deep vein acute thrombosis. Flow is absent umbar patient Objective - Constitutional Vitals: Temp Pulse Resp BP Pulse Ox 97.8 F 86 18 95/62 90 05/16/19 08:03 05/16/19 08:03 05/16/19 08:03 05/16/19 08:03 05/16/19 08:03 - Neurological Exam Motor Examination: Present: grossly full strength in all extremities Sensation intact: Present: intact Reflex and gait examination: intact Reflexes: Biceps: 1+, Triceps: 1+, Brachioradialis: 1+, Patella: 1+, Achilles: 1+ Mental Status Examination: Present: awake, alert, oriented to person, oriented to place, oriented to time, follows commands appropriately, answers questions appropriately Cranial nerve examination: Present: PERRL, EOMI, visual nettles intact, corneal reflexes brisk symmetrically, sensory to face intact Results - Laboratory Findings CBC and BMP: 05/16/19 03:57 05/16/19 03:57 Abnormal lab findings: Abnormal lab results WBC 16.6 K/mcL (4.3-11.1) H 05/16/19 03:57 RBC 3.70 M/mcL (3.82-4.97) L 05/16/19 03:57 Hgb 11.0 g/dL (11.5-15.4) L 05/16/19 03:57 Hct 33.9 % (35.3-44.9) L 05/16/19 03:57 RDW 20.1 % (11.5-14.5) H 05/16/19 03:57 Reticulocyte # 0.12 M/mcL (0.05-0.10) H 05/15/19 03:11 Neutrophils # 10.9 K/mcL (1.6-8.9) H 05/16/19 03:57 Monocytes # 1.5 K/mcL (0.0-1.3) H 05/16/19 03:57 Percent Retic 3.1 % (1.6-2.8) H 05/15/19 03:11 Haptoglobin 265 mg/dL (30-200) H 05/15/19 03:11 Sodium 135 mEq/L (136-145) L 05/15/19 03:11 Carbon Dioxide 20 mEq/L (23-29) L 05/16/19 03:57 BUN 25 mg/dL (8-23) H 05/16/19 03:57 Est GFR (Non-Af Amer) 57 (> 60) L 05/16/19 03:57 Glucose 171 mg/dL (70-105) H 05/16/19 03:57 POC Glucose 248 mg/dL (70-99) H 05/15/19 19:42 Hemoglobin A1c 7.5 % (-5.6) H 05/14/19 22:49 Phosphorus 2.6 mg/dL (2.7-4.5) L 05/15/19 03:11 Iron 35 mcg/dL (50-170) L 05/15/19 03:11 % Saturation 8 % (15-50) L 05/15/19 03:11 GGT 124 Units/L (1-24) H 05/15/19 03:11 Alkaline Phosphatase 133 Units/L (34-104) H 05/16/19 03:57 Globulin 3.6 g/dL (2.4-3.5) H 05/15/19 03:11 HDL Cholesterol 76 mg/dL (40-59) H 05/15/19 03:11 Vitamin B12 208 pg/mL (250-1100) L 05/15/19 03:11 Folate > 22.3 ng/mL (3.0-16.0) H 05/15/19 03:11 Ur Specific [place] > 1.030 (1.010-1.025) H 05/15/19 11:10 Urine Protein 30 mg/dL (Neg-Trace) H 05/15/19 11:10 Urine Bilirubin Small (Negative) H 05/15/19 11:10 Urine Microscopic RBC 3-5 per hpf (0-3) H 05/15/19 11:10 Ur Squamous Epith Cells Many per lpf (None-Few) H 05/15/19 11:10 Hyaline Casts Moderate per lpf (None-Few) H 05/15/19 11:10 Consult Discharge Plan - Plan Referrals: Prashant Pantoja DO [Primary Care Provider] - 05/22/19 1:00 pm
[2019-05-16] MEDS: Ondansetron ODT 4 MG TAB.RAPDIS SL PRN (19:27)
[2019-05-16] MEDS: Verapamil ER (24 HR) 120 MG TABLET.ER PO SCH (21:03)
[2019-05-16] MEDS: Verapamil ER (24 HR) 180 MG TABLET.ER PO SCH (21:03)
[2019-05-17] MEDS: Acetaminophen 325 MG TABLET PO PRN (01:20)
[2019-05-17 02:07] LABS: Basophils # 0.1 K/mcL (0.0-0.2); Basophils % 0.4 %; Eosinophils # 0.1 K/mcL (0.0-0.6); Eosinophils % 0.9 %; Hematocrit 38.1 % (35.3-44.9); Hemoglobin 11.8 g/dL (11.5-15.4); Lymphocytes # 3.1 K/mcL (0.6-4.6); Lymphocytes % 22.9 %; Mean Corpuscular Hemoglobin 30.4 pg (28.0-33.3); Monocytes # 1.2 K/mcL (0.0-1.3); Monocytes % 9.1 %; Platelet Count 186 K/mcL (140-400); Red Blood Count 3.88 M/mcL (3.82-4.97); Red Cell Distribution Width 19.9 % (11.5-14.5); Segmented Neutrophils % 65.7 %; White Blood Count 13.7 K/mcL (4.3-11.1)
[2019-05-17 02:24] LABS: Alanine Aminotransferase 13 Units/L (7-52); Albumin 3.7 g/dL (3.5-5.7); Albumin/Globulin Ratio 1.2 (1.1-2.2); Alkaline Phosphatase 144 Units/L (34-104); Aspartate Amino Transferase 19 Units/L (13-39); BUN/Creatinine Ratio 26 (6-26); Bilirubin,Total 0.8 mg/dL (0.3-1.0); Blood Urea Nitrogen 23 mg/dL (8-23); Calcium 9.3 mg/dL (8.6-10.3); Carbon Dioxide 21 mEq/L (23-29); Chloride 105 mEq/L (98-107); Globulin 3.2 g/dL (2.4-3.5); Glucose 149 mg/dL (70-105); Osmolality,Calculated 290 (280-300); Potassium 3.5 mEq/L (3.5-5.1); Sodium 137 mEq/L (136-145); Total Protein 6.9 g/dL (6.4-8.9); eGFR For African Americans > 60 (> 60); eGFR For Non-African Americans > 60 (> 60)
[2019-05-17 02:34] LABS: Mean Corpuscular Volume 98.2 fL (83.0-100.0)
[2019-05-17] MEDS: Aspirin Enteric Coated 81 MG Tablet PO SCH (08:24)
[2019-05-17] MEDS: *HR* Rivaroxaban 15 MG TABLET PO SCH (08:24)
[2019-05-17] MEDS: Insulin LISPRO 300 UNITS/3 ML VIAL SQ SCH ×2 (08:24→12:38)
[2019-05-17] MEDS: Topiramate 25 MG TABLET PO SCH (08:24)
--- NOTE | 2019-05-17 08:29 | Discharge Summary ---
- NOTES TO OUTPATIENT PROVIDER Notes to Outpatient Provider: R chest mediport complicated by R SCV DVT causing SVC syndrome, placed on Xarelto Date of Encounter: 05/17/19 Time of Encounter: 08:25 - Discharge Diagnosis (1) Subclavian vein thrombosis, right Priority: Primary Status: Acute Hospital course: Dear Doctors, I recently had the opportunity to care for this patient during their recent hospital stay at [facility]. Nisreen Duran is a 63 F w hx CoCa metastatic to liver and lung, morbid obesity, DM2, seizures, who presented at time of admission with swelling of her face, neck, upper chest, and arms/hands, concerning for angioedema v SVC syndrome. She very recently had a seizure and was discharged from this facility on Keppra about 1 week prior to admission. This was held and Neurology consulted for alternative antiepileptic medication. However, additional workup undertaken for degree and distribution of swelling. CT neck relatively unremarkable other than possible tongue base lesion, for which ENT performed laryngoscopy which was unremarkable. A venous duplex ultrasound of her RUE did result positive for R subclavian deep vein thrombosis for which she was started on anticoagulation. Symptoms did not continue to worsen, and therefore patient will have close Onc follow up to ensure continued improvement in upper body swelling. 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 Please contact me with any questions or concerns regarding their hospital stay. Sincerely, Houston Bermeo MD - Discharge Medications Prescriptions: New Topiramate 50 mg PO BID #60 tablet Rivaroxaban [Xarelto] 15 mg PO BID #40 tablet Rivaroxaban [Xarelto] 20 mg PO QPM #10 tablet Continued hydrOXYzine HCl [Hydroxyzine HCl] 25 mg PO HS PRN PRN Reason: Anxiety Atorvastatin Calcium [Lipitor] 20 mg PO HS Acetaminophen [Tylenol] 325 mg PO Q6HR PRN PRN Reason: Mild To Moderate Pain Verapamil HCl [Verelan Pm] 300 mg PO HS SitaGLIPtin [Januvia] 100 mg PO DAILY Prochlorperazine Maleate [Compazine] 10 mg PO Q6HR PRN #90 tablet PRN Reason: Nausea Aspirin [Adult Aspirin] 81 mg PO DAILY Docusate Sodium [Dulcolax Stool Softener] 100 mg PO BID PRN PRN Reason: Constipation DiphenhydraMINE [Benadryl] 25 mg PO Q8HR PRN PRN Reason: Allergy Symptoms Metformin HCl 1,000 mg PO BID Ondansetron HCl 8 mg PO Q8H PRN PRN Reason: NAUSEA/VOMITING Potassium Chloride [Klor-Con 10] 10 meq PO BID Discontinued levETIRAcetam [Keppra] 250 mg PO Q12HR Home Medications: Acetaminophen [Tylenol] 325 mg PO Q6HR PRN 02/16/18 [History] Atorvastatin Calcium [Lipitor] 20 mg PO HS 02/16/18 [History] SitaGLIPtin [Januvia] 100 mg PO DAILY 02/16/18 [History] Verapamil HCl [Verelan Pm] 300 mg PO HS 02/16/18 [History] hydrOXYzine HCl [Hydroxyzine HCl] 25 mg PO HS PRN 02/16/18 [History] Prochlorperazine Maleate [Compazine] 10 mg PO Q6HR PRN #90 tablet 03/17/18 [Rx] Aspirin [Adult Aspirin] 81 mg PO DAILY 11/21/18 [History] Docusate Sodium [Dulcolax Stool Softener] 100 mg PO BID PRN 11/21/18 [History] DiphenhydraMINE [Benadryl] 25 mg PO Q8HR PRN 03/12/19 [History] Metformin HCl 1,000 mg PO BID 05/05/19 [History] Ondansetron HCl 8 mg PO Q8H PRN 05/05/19 [History] Potassium Chloride [Klor-Con 10] 10 meq PO BID 05/05/19 [History] Rivaroxaban [Xarelto] 15 mg PO BID #40 tablet 05/17/19 [Rx] Rivaroxaban [Xarelto] 20 mg PO QPM #10 tablet 05/17/19 [Rx] Topiramate 50 mg PO BID #60 tablet 05/17/19 [Rx] Allergies/Adverse Reactions: Allergy/AdvReac Type Severity Reaction Status Date / Time naproxen [From Aleve] Allergy Severe Swelling Verified 05/11/19 20:45 of Lip/Tongue/Throat levetiracetam [From Keppra] Allergy Difficulty Verified 05/16/19 02:02 Swallowing quinapril Allergy Swelling Verified 05/11/19 20:45 of Lip/Tongue/Throat doxycycline AdvReac SWELLING Verified 05/11/19 20:45 ibuprofen AdvReac SWELLING Verified 05/11/19 20:45 iodine AdvReac SWELLING Verified 05/11/19 20:45 sulfamethoxazole AdvReac Hives Verified 05/11/19 20:45 [From Bactrim] trimethoprim [From Bactrim] AdvReac Hives Verified 05/11/19 20:45 Date of admission: 05/16/19 13:26 Primary care physician: Prashant Pantoja DO Consults: 05/15/19 06:50 Consult to Oncology Hematology [CONS] Routine Consulting Provider: Michelle Mejia Reason for Consult: SVC syndrome concern in patient with metastatic colon cancer. Call Completed: No 05/15/19 06:52 Consult to Neurology [CONS] Routine Consulting Provider: Neurology [facility] Reason for Consult: hx of seizure with suspected metastasis cause. Concern for keppra causing angioedema? Call Completed: No 05/15/19 10:50 Consult to ENT [CONS] Routine Consulting Provider: ENT [place] Reason for Consult: throat swelling, possible tongue mass on CT Call Completed: Yes - Constitutional Vitals: Temp Pulse Resp BP Pulse Ox 97.7 F 97 18 149/87 91 05/17/19 07:44 05/17/19 07:44 05/17/19 07:44 05/17/19 07:44 05/17/19 07:44 Exam: General: NAD, good eye contact, chronically ill appearing, obese, and slightly cushingoid with large round face w some bruising under eyes HEENT: large neck/habitus Thoracic: Normal breath sounds b/l, no wheezing or crackles, no stridor. R sq port Cardio: Normal S1 and S2, regular rate and rhythm Abdomen: Soft, nontender, nondistended, obese Extremities: Warm, well perfused. DP pulses 2+ b/l. No edema in legs. Hands and forearms puffy Neuro: Awake, fully oriented. Speech fluent - Patient Status Disposition: Home, Self-Care Condition: Serious Functional capacity at discharge: uses cane/walker Overall status at discharge: patient is progressing back to baseline - Discharge Instructions Instructions: Topiramate (By mouth), Rivaroxaban (By mouth), Diabetes Mellitus Type 2 in Adults (DC), Chronic Hypertension (DC), Superior Vena Cava Syndrome (DC) Follow Up With: Prashant Pantoja DO [Primary Care Provider] - 05/22/19 1:00 pm Jannet Walls MD [Partnered Physician] - (1-2 weeks) Additional Instructions: Call [facility] to arrange pickle pumper or delivery for rollator walker and bedside commode. Their contact number is #[phone]. - Diet and Activity Activity: resume usual activities as tolerated Diet: advance to your usual diet
--- NOTE | 2019-05-17 08:59 | Neurology Progress Note ---
Date of Encounter: 05/17/19 Time of Encounter: 07:35 Assessment and Plan (1) Facial swelling Current Visit: Yes Status: Acute (2) History of seizure Current Visit: Yes Status: Acute Stable clinically no further seizures reported off Keppra Started on Topamax patient is on 50 mg twice a day, suggest to increase the evening dose 100 mg for a week along with 50 mg in the morning and after week he can go 100 mg twice a day and continue on it (3) Colon cancer metastasized to multiple sites Current Visit: No Status: Acute (4) Neck swelling Current Visit: No Status: Acute Subjective Interval history: Patient is seen as an follow-up, she is still having swelling of the face though not as bad as she was having it earlier Venous duplex showed Right acute superficial thrombosis of the cephalic vein extending into the deep system at the subclavian. Right subclavian deep vein acute thrombosis. Flow is absent umbar patient Objective - Constitutional Vitals: Temp Pulse Resp BP Pulse Ox 97.7 F 97 18 149/87 91 05/17/19 07:44 05/17/19 07:44 05/17/19 07:44 05/17/19 07:44 05/17/19 07:44 - Neurological Exam Motor Examination: Present: grossly full strength in all extremities Sensation intact: Present: intact Reflex and gait examination: intact Mental Status Examination: Present: awake, alert, oriented to person, oriented to place, oriented to time, follows commands appropriately, answers questions appropriately Cranial nerve examination: Present: PERRL, EOMI, visual nettles intact, corneal reflexes brisk symmetrically, sensory to face intact Results - Laboratory Findings CBC and BMP: 05/17/19 01:40 05/17/19 01:40 Abnormal lab findings: Abnormal lab results WBC 13.7 K/mcL (4.3-11.1) H 05/17/19 01:40 RBC 3.70 M/mcL (3.82-4.97) L 05/16/19 03:57 Hgb 11.0 g/dL (11.5-15.4) L 05/16/19 03:57 Hct 33.9 % (35.3-44.9) L 05/16/19 03:57 MCHC 31.0 g/dL (31.6-35.5) L 05/17/19 01:40 RDW 19.9 % (11.5-14.5) H 05/17/19 01:40 MPV 9.0 fL (9.4-12.4) L 05/17/19 01:40 Reticulocyte # 0.12 M/mcL (0.05-0.10) H 05/15/19 03:11 Neutrophils # 9.0 K/mcL (1.6-8.9) H 05/17/19 01:40 Monocytes # 1.5 K/mcL (0.0-1.3) H 05/16/19 03:57 Percent Retic 3.1 % (1.6-2.8) H 05/15/19 03:11 Haptoglobin 265 mg/dL (30-200) H 05/15/19 03:11 Sodium 135 mEq/L (136-145) L 05/15/19 03:11 Carbon Dioxide 21 mEq/L (23-29) L 05/17/19 01:40 BUN 25 mg/dL (8-23) H 05/16/19 03:57 Est GFR (Non-Af Amer) 57 (> 60) L 05/16/19 03:57 Glucose 149 mg/dL (70-105) H 05/17/19 01:40 POC Glucose 155 mg/dL (70-99) H 05/17/19 07:41 Hemoglobin A1c 7.5 % (-5.6) H 05/14/19 22:49 Phosphorus 2.6 mg/dL (2.7-4.5) L 05/15/19 03:11 Iron 35 mcg/dL (50-170) L 05/15/19 03:11 % Saturation 8 % (15-50) L 05/15/19 03:11 GGT 124 Units/L (1-24) H 05/15/19 03:11 Alkaline Phosphatase 144 Units/L (34-104) H 05/17/19 01:40 Globulin 3.6 g/dL (2.4-3.5) H 05/15/19 03:11 HDL Cholesterol 76 mg/dL (40-59) H 05/15/19 03:11 Vitamin B12 208 pg/mL (250-1100) L 05/15/19 03:11 Folate > 22.3 ng/mL (3.0-16.0) H 05/15/19 03:11 Ur Specific [place] > 1.030 (1.010-1.025) H 05/15/19 11:10 Urine Protein 30 mg/dL (Neg-Trace) H 05/15/19 11:10 Urine Bilirubin Small (Negative) H 05/15/19 11:10 Urine Microscopic RBC 3-5 per hpf (0-3) H 05/15/19 11:10 Ur Squamous Epith Cells Many per lpf (None-Few) H 05/15/19 11:10 Hyaline Casts Moderate per lpf (None-Few) H 05/15/19 11:10 Consult Discharge Plan - Plan Referrals: Jannet Walls MD [Partnered Physician] - (1-2 weeks) Prashant Pantoja DO [Primary Care Provider] - 05/22/19 1:00 pm Prescriptions: Topiramate 50 mg PO BID #60 tablet Transmission Status: Received by [facility] Rivaroxaban [Xarelto] 15 mg PO BID #40 tablet Transmission Status: Received by [facility] Rivaroxaban [Xarelto] 20 mg PO QPM #10 tablet Transmission Status: Received by [facility]
[2019-05-17 10:17] LABS: ANA IgG by ELISA NONE DETECTED (None Detected)
[2019-05-17 11:59] VITALS: BP 119/81
--- NOTE | 2019-05-17 17:14 | Oncology Inp Progress Note ---
Date of Encounter: 05/17/19 Time of Encounter: 08:00 (1) Colon cancer metastasized to multiple sites Status: Acute Assessment and plan: Patient is on chemotherapy, changing treatment planned next week due to progressive changes in imaging studies. She is hospitalized with facial swelling, DVT right subclavian vein and right Colic vein on anticoagulation with Xarelto twice daily. Port in place, not removed. He currently monitored in clinic with follow-up for continuation of treatment. Lab of care discussed with patient bedside. Oncology: Subj Interval history: Patient was sitting up in the chair with some neck facial and upper extremity swelling bilateral. She denied any further headaches or seizure episodes. - Constitutional General appearance: no acute distress, obese - Head Additional comments: bruising around eyes-old - Eye Eye exam: Present: sclera anicteric - ENT ENT exam: Present: mucous membranes dry - Neck Neck exam: Present: full ROM - Respiratory Respiratory exam: Present: CTAB - Cardiovascular Cardiovascular exam: Present: +S1, +S2 - Extremities Exam Additional comments: upper ext swelling/hands. - Neurological Exam Neurological exam: Present: alert, CN II-XII intact, oriented X3, no focal deficits Oncology: Obj Data - Labs CBC & Chem 7: 05/17/19 01:40 05/17/19 01:40 Consult Discharge Plan - Plan Instructions: Topiramate (By mouth), Rivaroxaban (By mouth), Diabetes Mellitus Type 2 in Adults (DC), Chronic Hypertension (DC), Superior Vena Cava Syndrome (DC) Additional Instructions: Call [facility] to arrange medicinal plant picker or delivery for rollator walker and bedside commode. Their contact number is #[phone]. Referrals: Jannet Walls MD [Partnered Physician] - (1-2 weeks) Prashant Pantoja DO [Primary Care Provider] - 05/22/19 1:00 pm Prescriptions: Topiramate 50 mg PO BID #60 tablet Transmission Status: Received by [facility] Rivaroxaban [Xarelto] 15 mg PO BID #40 tablet Transmission Status: Received by [facility] Rivaroxaban [Xarelto] 20 mg PO QPM #10 tablet Transmission Status: Received by [facility] Inpatient Charges Provider: Dr. Maria Eugenia Walls Follow up - Inpatient: [id number]
== END 2019-05-17 13:31 | disposition home or self-care (01) | DRG 300 ==
LOC: 2NNU → SUATTDRO 20:04 → 3BNU 05-15 14:37
PROVIDERS: ADMIT Internal Medicine; ATTEND Internal Medicine

== ENCOUNTER 2019-11-06 12:27 | Observation (INO) ==
[2019-11-06] MEDS ORDERED: Isovue-370 500 ML BOTTLE IVP ONE (12:32)
[2019-11-06 13:15] LABS: Basophils % 0.4 %; Hematocrit 33.5 % (35.3-44.9); Hemoglobin 10.1 g/dL (11.5-15.4); Immature Granulocytes % 2.6 % (0-4); Lymphocytes # 0.6 K/mcL (0.6-4.6); Lymphocytes % 6.2 %; Mean Corpuscular HGB Conc 30.1 g/dL (31.6-35.5); Mean Corpuscular Hemoglobin 25.4 pg (28.0-33.3); Mean Corpuscular Volume 84.4 fL (83.0-100.0); Mean Platelet Volume 9.2 fL (9.4-12.4); Monocytes # 0.5 K/mcL (0.0-1.3); Monocytes % 5.3 %; Neutrophils # 7.6 K/mcL (1.6-8.9); Platelet Count 465 K/mcL (140-400); Red Blood Count 3.97 M/mcL (3.82-4.97); Red Cell Distribution Width 20.9 % (11.5-14.5); Segmented Neutrophils % 85.5 %; White Blood Count 8.9 K/mcL (4.3-11.1)
[2019-11-06 13:36] LABS: INR 1.6; Prothrombin Time 18.4 Seconds (9.4-12.1)
[2019-11-06 13:38] LABS: Activated Partial Thrombo Time 30.6 Seconds (26.0-36.0)
[2019-11-06 13:41] LABS: BUN/Creatinine Ratio 16 (6-26); Blood Urea Nitrogen 10 mg/dL (8-23); Calcium 9.4 mg/dL (8.6-10.3); Carbon Dioxide 17 mEq/L (23-29); Chloride 105 mEq/L (98-107); Glucose 342 mg/dL (70-105); Osmolality,Calculated 287 (280-300); Potassium 3.6 mEq/L (3.5-5.1); Sodium 132 mEq/L (136-145); Troponin I < 0.03 ng/mL (< 0.04); eGFR For African Americans > 60 (> 60); eGFR For Non-African Americans > 60 (> 60)
[2019-11-06 13:41] LABS: Bilirubin,Urine Negative (Negative); Blood,Urine Negative (Negative); Color,Urine Yellow (Yellow); Glucose,Urine (UA) 100 mg/dL (Normal); Ketones,Urine Negative (Negative); Leukocyte Esterase,Urine Negative (Negative); Nitrite,Urine Negative (Negative); PH,Urine 5.5 pH Units (5.0-8.0); Protein,Urine Negative (Neg-Trace); Specific Gravity,Urine 1.018 (1.010-1.025); Urobilinogen,Urine Normal (Normal)
[2019-11-06 13:43] LABS: Clarity,Urine Clear (Clear)
[2019-11-06] MEDS ORDERED: predniSONE 20 MG TABLET PO ONE (14:15)
[2019-11-06] MEDS ORDERED: 0.9 % Sodium Chloride 1,000 ML IVC SCH ×2 (14:45→15:15)
[2019-11-06] MEDS ORDERED: Ondansetron 4 MG/2 ML VIAL IVP PRN (15:13)
[2019-11-06] MEDS ORDERED: Naloxone 0.4 MG/ML INJ IVP PRN (15:13)
[2019-11-06] MEDS ORDERED: hydrOXYzine pamoate 25 MG CAPSULE PO PRN (15:16)
[2019-11-06] MEDS ORDERED: Patient Taking Own Medication 1 EACH PO SCH (15:30)
[2019-11-06] MEDS ORDERED: *HR* Rivaroxaban 10 MG TABLET PO SCH (17:00)
[2019-11-06] MEDS ORDERED: *HR* Dextrose 50 % in Water (Syg) 50 ML SYRINGE IVP PRN ×2 (17:48→17:49)
[2019-11-06] MEDS ORDERED: D5% in Water 1,000 ML IVC PRN ×2 (17:48→17:49)
[2019-11-06] MEDS ORDERED: Dextrose Gel 15 GM/37.5 ML TUBE PO PRN ×4 (17:48→17:49)
[2019-11-06] MEDS ORDERED: Nitroglycerin 0.4 MG TAB.SUBL SL PRN (17:51)
[2019-11-06] MEDS: Insulin LISPRO 300 UNITS/3 ML VIAL SQ SCH (18:55)
[2019-11-06] MEDS: Topiramate 25 MG TABLET PO SCH (20:12)
[2019-11-06] MEDS ORDERED: Insulin LISPRO 300 UNITS/3 ML VIAL SQ SCH ×2 (21:00)
[2019-11-06] MEDS ORDERED: dexAMETHasone 4 MG TABLET PO SCH (21:00)
[2019-11-06] MEDS ORDERED: Perflutren Lipid Microsphere 1.3 ML in 0.9 % Sodium Chloride 8.7 ML IVP ONE (21:44)
[2019-11-07 04:16] LABS: Basophils % 0.1 %; Immature Granulocytes % 1.9 % (0-4); Lymphocytes # 0.7 K/mcL (0.6-4.6); Lymphocytes % 9.2 %; Mean Corpuscular Hemoglobin 25.1 pg (28.0-33.3); Mean Corpuscular Volume 83.6 fL (83.0-100.0); Mean Platelet Volume 8.8 fL (9.4-12.4); Monocytes # 0.4 K/mcL (0.0-1.3); Monocytes % 5.2 %; Neutrophils # 6.1 K/mcL (1.6-8.9); Platelet Count 408 K/mcL (140-400); Red Blood Count 3.59 M/mcL (3.82-4.97); Red Cell Distribution Width 20.4 % (11.5-14.5); Segmented Neutrophils % 83.6 %; White Blood Count 7.3 K/mcL (4.3-11.1)
[2019-11-07 04:31] LABS: BUN/Creatinine Ratio 20 (6-26); Blood Urea Nitrogen 14 mg/dL (8-23); Calcium 9.2 mg/dL (8.6-10.3); Carbon Dioxide 19 mEq/L (23-29); Chloride 108 mEq/L (98-107); Glucose 271 mg/dL (70-105); Osmolality,Calculated 294 (280-300); Potassium 3.5 mEq/L (3.5-5.1); Sodium 137 mEq/L (136-145); eGFR For African Americans > 60 (> 60); eGFR For Non-African Americans > 60 (> 60)
[2019-11-07 06:45] VITALS: BP 100/58
[2019-11-07] MEDS ORDERED: Insulin LISPRO 300 UNITS/3 ML VIAL SQ SCH (07:30)
[2019-11-07] MEDS: Topiramate 25 MG TABLET PO SCH (07:39)
[2019-11-07] MEDS: Insulin LISPRO 300 UNITS/3 ML VIAL SQ SCH ×2 (07:40→11:51)
[2019-11-07] MEDS ORDERED: Loratadine 10 MG TABLET PO SCH (09:00)
== END 2019-11-07 12:37 | disposition home or self-care (01) ==
LOC: 3BNU 12:27 → EMEROOARM 12:27 → SUATTDRO 14:57 → 3BNU 15:37
PROVIDERS: ADMIT Family Medicine; ATTEND Internal Medicine